=== PATIENT | female | born 1935 | race African-American/Black ===

== ENCOUNTER → 2016-06-13 | Outpatient (CLI) | payer MEDICARE, BC ==
--- NOTE | 2016-06-13 15:30 | RADRPT ---
PROCEDURE: Right knee radiographs. CLINICAL INDICATION: Right knee pain. TECHNIQUE: Three views. Weight bearing. Frontal, lateral, and patellar view. COMPARISON: No prior studies are available for comparison. FINDINGS: There is no fracture or dislocation. The soft tissues are normal. There are degenerative changes with osteophytes arising from all 3 joint compartment margins. There is lateral joint compartment narrowing, subarticular sclerosis, and subarticular cysts, unchanged. There is no lytic or blastic lesion. There is no radiopaque foreign body. IMPRESSION: 1. Degenerative changes of the right knee, predominately involving the lateral joint compartment. RPTAT: QQ .Ignacio Tadeo MD, MD Date Time Electronically viewed and signed by .Ignacio Tadeo MD, MD on 06/13/2016 15:30 .R/
--- NOTE | 2016-06-13 22:49 | HKNOTE ---
DATE OF SERVICE: The patient comes in to discuss total knee replacement. Her right knee pain had become very much wo rse since she last saw me. She gets pain with every step that she takes. She lives alone. She use s a cane at all times. She gets pain in the knee with every step that she takes. She fell again 2 weeks ago and this seemed to aggravate her knee pain. She feels that instability of the knee is wha t caused her to fall. She states, "the knee is very weak." Note that patient has a history of HEPATITIS B. PHYSICAL EXAMINATION GENERAL: The patient is a delightful and youthful and healthy looking 81-year-old female. She come s in with at least 3 or 4 friends. VITAL SIGNS: Height 5 feet 5 inches, weight 190 pounds. Blood pressure 150/70, temperature 98.1. She has severe antalgic gait. RIGHT KNEE: The right knee shows normal alignment. Extension lacks 10 degrees. Flexion lacks 30 de grees. Pain at the limits of motion, 6+ crepitus in the knee, none in the patella. IMAGING: Of her right knee was again reviewed. This shows severe arthritis of the knee with bone-o n-bone contact medially, subchondral sclerosis and osteophyte formation. DISCUSSION : An 81-year-old female with progressively increasing pain in her right knee from neutral arthritis. She has tried conservative methods of treatment including cortisone and physical therap y. She is quite markedly incapacitated. She is very alert and is anxious that she should maintain her independence. She lives in her own house but has a "helper." MANAGEMENT: The operation of total knee replacement is discussed with her in a fair amount of detai l including some of the major possible complications. The patient was given my manual titled "Arthritis of the Knee Joint" which contains information conc erning the various alternatives of treatment. It includes various forms of conservative treatment, i ncluding the use of nonsteroidal anti-inflammatory medications and their dangers. Various surgical a lternatives are discussed. The technique of total knee replacement is discussed in detail, including possible complications. Included also is a section on the possible complications of blood transfusi on, a section on postoperative precautions, and an exercise program to follow at home after total kn ee replacement. The long-term care of a total knee replacement implant is also covered in detail. Th e patient was instructed to read this manual in its entirety since it is, in and of itself, a form o f informed consent. After reading this manual, the patient will make a list of further questions koki t may not have been covered adequately. The patient was further advised that this manual, although e xhaustive in nature, is only intended to supplement and complement a one-on-one discussion with me. The patient's surgery will be scheduled to be performed in the near future. Dictated By: NICK ROMAN/MEETA Conf#: [id number] DID#: [id number]
== END | disposition home or self-care (01) ==
LOC: HKI 13:55
DX: M25.561 Pain in right knee (principal); M25.761 Osteophyte, right knee
CPT/HCPCS: G0463

== ENCOUNTER 2016-07-06 06:10 | Inpatient (IN) | payer MEDICARE, BC ==
[2016-07-05 09:24] VITALS: BMI 31.6
--- NOTE | 2016-07-05 10:08 | PREOPHP ---
DATE OF ADMISSION: 07/06/2016 Dr. Douglas Alegre MD dicated Pre-Operative History and Physical for Carter Rivas. She is scheduled for a right knee arthroplasty to be done by Dr. Garcia at [facility] on July 06. CHIEF COMPLAINT: Pain in the right knee for several months. HISTORY OF PRESENT ILLNESS: This 81-year-old pleasant -Italian female was evaluated by Dr. Batsheva helm in the recent past for right knee osteoarthritis. The patient tried pain medications and a ntiinflammatory agents without much help. Her x-ray showed the right knee revealed osteoarthritic ch anges. Dr. Garcia after evaluation decided she would benefit from a total knee replacement. She uses a single point cane for walking. ____ 50 mg 1 twice a day p.r.n. for pain. PAST MEDICAL HISTORY: Had measles and chicken pox as a child. Has a history of hypertension for many years, hyperlipidemia, cervical spondylosis, lumbar disk disease with occasional left sciatica, exo genous obesity and mild constipation, for which she takes stool softeners and more recently Miralax. She also has a history of hepatitis B many, many years ago. She states her was on hemodialy sis and she thinks that she got it from him but she was not a carrier. No history of any liver dysfu nction in the last ____. She has colonoscopic removal of polyps a few times and a foot surgeries for bunions and hammertoes. SOCIAL HISTORY: She is a . Lives alone with her friends. Drinks alcohol very rarely. Used to sm gabino half a pack of cigarettes for about 38 to 35 years, quit in 1994. 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 FAMILY HISTORY: Mother and brother had colon cancer. Mother had rheumatoid arthritis. A cousin has tonya iabetes. Another cousin has lupus and some kidney problems. ALLERGIES TO MEDICATIONS: NO KNOWN DRUG ALLERGIES, but she has mild hayfever, ALLERGIC TO DUST AND T UMBLEWEEDS. IMMUNIZATIONS: Had pneumovaccine some years ago and also had Prevnar 13 in 2016. She had her last fl u shot in the fall of 2016. REVIEW OF SYSTEMS: GENERAL: Has been obese for many years. No fever or chills. HEENT: Wears glasses. Has mild hayfever. Used vlwv-gek-iwywulj medications for mild symptoms but not on any at this time. NECK: Has a cervical spondylosis. No radiculopathy. No thyroid problems. CARDIAC: Has hypertension for many years. No heart failure. No palpitations or any arrhythmias. No congestive heart failure. No pedal edema or paroxysmal dyspnea or orthopnea. RESPIRATORY: No chronic bronchitis or emphysema or asthma. GASTROINTESTINAL: Has mild constipation. Uses stool softeners and Miralax. No peptic ulcer disease or acid reflux disease. No hematemesis or melena, hematochezia. GENITOURINARY: Has nocturia 2 to 3 times a night. No hematuria or kidney stones or chronic kidney d isease. MUSCULOSKELETAL: As stated above, has moderate osteoarthritis of the right knee and mild arthritis in the left knee. NEUROPSYCHIATRIC: No history of any depression or any anxiety. Has mild essential tremors which are controlled by metoprolol, which she uses for her hypertension. No prior TIAs or strokes. No seizure disorder. HEMATOLOGICAL/ONCOLOGICAL: Unremarkable. ENDOCRINE: No diabetes or hypothyroidism. CURRENT MEDICATIONS: Please see the medication sheet. She is on: 1. Atorvastatin 10 mg at bedtime daily. 2. Centrum Silver 1 daily. She was on aspirin 81 mg daily, but this was discontinued in preparation for surgery. 3. Nasacort nasal spray, 2 sprays on each side of the nose once a day as needed. 4. Tramadol 50 mg 1 twice a day p.r.n. 5. Dulcolax tablets 5 mg, 1 tablet every 2 days. 6. Senokot 8.6 mg, 1 tablet twice a day. 7. Miralax 17 grams p.o. daily with 8 ounces of water as needed. 8. Losartan/hydrochlorothiazide 50/12.5 mg 1 tablet daily in the morning. 9. Metoprolol extended release 100 mg daily in the morning. PHYSICAL EXAMINATION: GENERAL: Revealed the patient to be moderately obese. Alert and oriented to time, place and person. VITAL SIGNS: As follows: Weight 190 pounds, afebrile. Pulse 72, regular. BP 128/80 mm Hg. Respiratio ns 16. Pulse ox on room air 97%. HEENT: Normocephalic. Pupils equal, round, and reactive to light. Nose and throat clear. Ears: Righ t ear no wax. Tympanic membrane normal left ear, mild wax present. TM not seen. NECK: No jugular ve nous distention. No thyromegaly. No carotid bruits. No nuchal rigidity. No significant tenderness on range of motion of the neck. CHEST: Symmetrical. HEART: Regular. No murmurs or gallops. LUNGS: On auscultation reveal no rales ____ . ABDOMEN: EXTREMITIES: ____ no edema, cyanosis or clubbing. Has good pedal pulses. No calf muscle tenderness. No varicose veins. Right knee has mild pain and tenderness without any effusion. Range of motion m ildly decreased. Left knee has mild osteoarthritic changes. No significant tenderness on range of mo tion. BACK: Lumbar examination of spine revealed mild tenderness over the lumbar spine. NEUROLOGICAL: Revealed patient's motor strength to be normal for her age. Sensory system grossly nor mal. Deep tendon reflexes decreased due to obesity and age. Cranial nerves from 2-12 grossly normal. Memory: Normal for her age. Has occasional ____ recent memory. PREOPERATIVE LABS: Chem panel done on 06/29/2016 was normal except for a globulin of 4.10, estimated GFR was 84 mL per minute. BUN, creatinine and electrolytes and her liver functions were normal. Bl ood sugar 97. CBC revealed a white cell count of 4.1, hemoglobin 12.3, platelet count 260,000. PT IN R 1.3 but this was done while patient was on aspirin until 06/29/2016. An electrocardiogram done on 06/29/2016 revealed sinus rhythm with a rate of 73 per minute. ____ revealed mild cardiomegaly and d egenerative change of thoracic spine and atherosclerotic change of the aorta but no acute disease. IMPRESSION: 1. Osteoarthritis of the right knee, moderate, causing pain on walking and patient is using a singl e point cane to walk. Going for a total knee replacement on the right side on 07/06/[address] Petra wesley. 2. Hypertension. 3. Exogenous obesity. 4. Hyperlipidemia. 5. Lumbar disk disease with occasional left sciatica. 6. Mild constipation on stool softeners and laxatives. 7. Status post total hysterectomy for bleeding fibroids. 8. Remote history of hepatitis B without any ongoing problems and not a carrier. DISCUSSION: This patient has no absolute contraindications for the proposed surgery. She is an avera ge risk for this surgery for her age group and patient will benefit from a telemetry bed post surger y. She was advised to take her blood pressure medications by mouth from midnight the night before sanchez rgery other than what was stated above for blood pressure medications. She is cleared for surgery wi th the usual intraoperative and postop precautions. It is recommended that she see a general interni st postoperatively for medical followup while she is in the hospital. PROGNOSIS: Guarded. Dictated By: NICK GARCIA MD HH/NTS Conf#: [id number] DID#: [id number] CC: Douglas Alegre;*End*
[2016-07-06] VITALS (29 sets, daily range): BP systolic 137–185; BP diastolic 60–88; PULSE 59–73; RESP 12–20; Ht 165.1 cm; Wt 84.2 kg
[~2016-07-06] VITALS: Ht 165.1 cm; Wt 84.2 kg
[~2016-07-06 06:10] MED LIST: KNEE PAIN COCKTAIL VANCO INJ SCH; SOD CHLORIDE 0.9% IVPB ONE; TRANEXAMIC ACID IVPB ONE
[2016-07-06] MEDS ORDERED: VANCOMYCIN 1 GM (PMX) 250 ML IVPB ONE (06:30)
[2016-07-06] MEDS ORDERED: LANSOPRAZOLE 30 MG CAP PO ONE (06:30)
[2016-07-06] MEDS ORDERED: CELECOXIB 200 MG CAP PO ONE (06:30)
[2016-07-06] MEDS ORDERED: ONDANSETRON 4 MG INJ IV ONE (06:30)
[2016-07-06] MEDS ORDERED: LACTATED RINGER'S 1,000 ML IV* SCH (06:30)
[2016-07-06] MEDS ORDERED: ACETAMINOPHEN 1000MG/100ML IV 100 ML IVPB ONE (06:30)
[2016-07-06] MEDS ORDERED: oxyCODONE (CR) 10 MG TAB [oxyCONTIN] PO ONE (06:30)
[2016-07-06] MEDS ORDERED: DEXAMETHASONE 4 MG/ML 1 ML INJ IV ONE (06:30)
[2016-07-06] MEDS ORDERED: LOSA1TAB19 PO (06:46)
[2016-07-06] MEDS ORDERED: ATOR10TA65 PO (06:46)
[2016-07-06] MEDS ORDERED: METO100T13 PO (06:46)
[2016-07-06] MEDS ORDERED: POLY17PO6 PO (06:46)
[2016-07-06] MEDS ORDERED: SENN17.23 PO (06:46)
[2016-07-06] MEDS ORDERED: TRAM50TA2 PO (06:46)
[2016-07-06] MEDS ORDERED: ASPI-664 PO (06:46)
[2016-07-06] MEDS ORDERED: LIDOCAINE 2% (SDV) 5 ML INJ ONE ×5 (06:48→07:35)
[2016-07-06] MEDS ORDERED: MIDAZOLAM 1 MG/ML 2 ML INJ ONE (06:48)
[2016-07-06] MEDS ORDERED: PROPOFOL 100 ML ONE (06:48)
[2016-07-06] MEDS ORDERED: VANCOMYCIN 1 GM INJ ONE (06:58)
[2016-07-06] MEDS ORDERED: POLYMYXIN B 500000 UNIT INJ ONE (06:58)
[2016-07-06] MEDS ORDERED: TOBRAMYCIN 1.2 GM POWDER ONE (06:58)
[2016-07-06] MEDS ORDERED: BUPIVACAINE 0.25%/EPI (SDV) 30 ML INJ ONE (06:58)
[2016-07-06] MEDS ORDERED: METHYLENE BLUE 1% 10 ML INJ ONE (06:58)
[2016-07-06] MEDS ORDERED: SOD CHLORIDE 0.9% IRR SCH ×2 (07:00)
[2016-07-06] MEDS ORDERED: TRANEXAMIC ACID IRR SCH ×2 (07:00)
[2016-07-06] MEDS ORDERED: BACITRACIN 50000 UNITS INJ ONE (07:02)
[2016-07-06] MEDS ORDERED: LIDOCAINE 1% (MDV) 20 ML INJ ONE (07:09)
--- NOTE | 2016-07-06 07:17 | HPN ---
Date/Time of Note Date/Time of Note DATE: 07/06/16 TIME: 07:17 Interval H&P Admission Note Pt. seen H&P reviewed: No system changes CHLOE DICKSON PA-C Jul 06, 2016 07:17
[2016-07-06] MEDS ORDERED: LIDOCAINE 1% (MDV) 20 ML INJ SC ONE (07:30)
[2016-07-06] MEDS ORDERED: PHENYLephrine (100 MCG/ML) 5ML SYG ONE ×2 (07:35→08:41)
[2016-07-06] MEDS ORDERED: DIPHENHYDRAMINE 50 MG INJ IV PRN (08:30)
[2016-07-06] MEDS ORDERED: MEPERIDINE 25 MG INJ IV PRN (08:30)
[2016-07-06] MEDS ORDERED: morphine (1 MG/ML) 10ML SYRINGE IV PRN ×3 (08:30)
[2016-07-06] MEDS ORDERED: LABETALOL HCL 20MG INJ IV PRN (08:30)
[2016-07-06] MEDS ORDERED: OXYCODONE/ACETAMINOPHEN (5/325) TAB PO PRN ×2 (08:30)
[2016-07-06] MEDS ORDERED: ALBUMIN HUMAN 5% 250 ML IV PRN (08:30)
[2016-07-06] MEDS ORDERED: hydrALAzine 20 MG INJ IV PRN (08:30)
[2016-07-06] MEDS ORDERED: ONDANSETRON 4 MG INJ IV PRN (08:30)
[2016-07-06] MEDS ORDERED: HYDROmorphONE (0.2 MG/ML) 10ML SYG IV PRN ×3 (08:30)
[2016-07-06] MEDS ORDERED: EPHEDrine SULFATE 50 MG/5 ML SYG IV PRN (08:30)
[2016-07-06] MEDS ORDERED: HETASTARCH 6% NACL 500 ML ONE (08:41)
[2016-07-06] MEDS ORDERED: ROPIVACAINE 0.2% 100ML BAG INJ ONE (09:00)
[2016-07-06] MEDS ORDERED: METOCLOPRAMIDE 10 MG INJ ONE (09:19)
[2016-07-06] MEDS ORDERED: DEXAMETHASONE 4 MG/ML 1 ML INJ ONE (09:19)
[2016-07-06] MEDS ORDERED: FAMOTIDINE 20 MG INJ ONE (09:19)
[2016-07-06] MEDS ORDERED: ONDANSETRON 4 MG INJ ONE (09:19)
[2016-07-06] MEDS: ONDANSETRON 4 MG INJ IV SCH ×4 (11:30→23:30)
[2016-07-06] MEDS ORDERED: NALOXONE (0.4 MG/ML) INJ IV PRN (11:30)
[2016-07-06] MEDS ORDERED: HYDROmorphONE 0.2 MG/ML PCA IV PRN (11:30)
[2016-07-06] MEDS ORDERED: BISACODYL 10 MG SUPP PR PRN (11:30)
[2016-07-06] MEDS ORDERED: DIPHENHYDRAMINE 50 MG INJ IM PRN (11:30)
[2016-07-06] MEDS ORDERED: NA PHOSPHATE/BIPHOS 133 ML ENEMA PR PRN (11:30)
[2016-07-06] MEDS ORDERED: COUMADIN NOTE XX SCH (11:30)
[2016-07-06] MEDS ORDERED: SENNA/DOCUSATE NA (8.6MG/50MG) TAB PO PRN (11:30)
[2016-07-06] MEDS ORDERED: ASPIRIN (EC) 325 MG TAB PO ONE (11:30)
[2016-07-06] MEDS ORDERED: oxyCODONE 5 MG TAB PO PRN ×3 (11:30)
[2016-07-06] MEDS ORDERED: BETHANECHOL 25 MG TAB PO PRN (11:30)
[2016-07-06] MEDS ORDERED: MEPERIDINE 10 MG/ML 30 ML PCA IV PRN (11:30)
[2016-07-06] MEDS ORDERED: MAGNESIUM HYDROXIDE 30ML CUP PO PRN (11:30)
[2016-07-06] MEDS ORDERED: ZOLPIDEM 5 MG TAB PO PRN (11:30)
[2016-07-06] MEDS: ACETAMINOPHEN 1000MG/100ML IV 100 ML IVPB SCH ×2 (11:30→19:47)
[2016-07-06] MEDS ORDERED: DOCUSATE SODIUM 100 MG CAP PO ONE (11:30)
--- NOTE | 2016-07-06 11:40 | RADRPT ---
PROCEDURE: X-RAY RIGHT KNEE CLINICAL INDICATION: Right knee replacement. TECHNIQUE: 2 views of the right knee are available for review. COMPARISON: 05/24/2016. FINDINGS: Intraoperative images were obtained of the right knee. A probe is within the knee joint. The patie nt has undergone a knee replacement. There is an overall appropriate appearance. No acute fracture is seen. The bones are osteoporotic. IMPRESSION: 1. Appropriate appearance to intraoperative images of the right knee at the time of knee replacemen t. 2. Osteoporosis. No fractures seen. RPTAT: XX .Nicolas Bustamante MD, Date Time Electronically viewed and signed by .Nicolas Bustamante MD, on 07/06/2016 11:40 .T/
[2016-07-06] MEDS: CEFAZOLIN 1 GM/50 ML (PMX) 50 ML IVPB SCH ×2 (12:30→19:47)
--- NOTE | 2016-07-06 12:34 | CONS ---
Date/Time of Note Date/Time of Note DATE: 07/06/16 TIME: 12:09 Consultation Date/Type/Reason Admit Date/Time Jul 06, 2016 at 06:10 Initial Consult Date cancel report Exam/Review of Systems Vital Signs Vitals Vital Signs Date Time Temp Pulse Resp B/P Pulse Ox O2 Delivery O2 Flow Rate FiO2 07/06/16 11:25 97.5 07/06/16 11:21 71 18 150/71 99 Mask 8.0 Medications Medications Current Medications Ropivacaine 60 ml/ Morphine Sulfate 4 mg/Clonidine 100 mcg/Ketorolac Tromethamine 30 mg/Vancomycin HCl 500 mg/Sodium Chloride 50 ml INTRA-OP INJ Last administered on 07/06/16 09:00; Admin Dose 116 ML; Start 07/06/16 at 05:30 ; Stop 07/09/16 at 13:00 Lactated Ringer's 1,000 ml @ 125 mls/hr Q8H IV* Last administered on 06:48; Admin Dose 125 MLS/HR; Start 07/06/16 at 06:30; Stop 07/06/16 at 14: 29 Dextrose/Lactated Ringer's (D5-Lr) 1,000 ml @ 80 mls/hr [id number] IV ; Start at 11:05 Hydromorphone HCl (Dilaudid OUTREACH EDUCATOR) Q4PCA PRN IV SEVERE PAIN 8-10; Start at 11:30; Stop 07/07/16 at 11:29 Meperidine HCl (Demerol OUTREACH EDUCATOR) Q4PCA PRN IV SEVERE PAIN 8-10; Start 07/06/16 at 11:30; Stop 07/07/16 at 11:29 Oxycodone HCl (Roxicodone) 20 mg Q3H PRN PO PAIN LEVEL 8-10; Start 07/06/16 at 11:30 Oxycodone HCl (Roxicodone) 10 mg Q3H PRN PO PAIN LEVEL 4-7; Start 07/06/16 at 11:30 Oxycodone HCl 5 mg 5 mg Q3H PRN PO PAIN LEVEL 1-3; Start 07/06/16 at 11:30 Acetaminophen (Ofirmev 1000mg/ 100ml Iv) 100 ml @ 400 mls/hr Q8H IVPB ; Start 07/06/16 at 11:30; Stop 07/08/16 at 03:44 Zolpidem Tartrate (Ambien) 5 mg HS PRN PO INSOMNIA; Start 07/06/16 at 11:30 Ondansetron HCl (Zofran Inj) 4 mg Q6H IV ; Start 07/06/16 at 11:30; Stop at 05:31 Ondansetron HCl 4 mg 4 mg Q4H PRN IV NAUSEA AND/OR VOMITING; Start 07/07/16 at 11:30 Cefazolin Sodium (Ancef 1 Gm/50 ml (Pmx)) 50 ml @ 100 mls/hr Q8H IVPB ; Start 07/06/16 at 11:30; Stop 07/07/16 at 03:59 Miscellaneous Information (Note) NOTE XX ; Start 07/06/16 at 11:30 Aspirin (Ecotrin) 325 mg BID PO ; Start 07/07/16 at 09:00 Celecoxib (Celebrex) 200 mg BID PO ; Start 07/07/16 at 09:00 Dexamethasone (Decadron) 4 mg DAILY@07 IV ; Start 07/07/16 at 07:00; Stop at 06:59 Pantoprazole (Protonix Tab) 40 mg DAILY@06 PO ; Start 07/08/16 at 06:00 Docusate Sodium/ Ferrous Fumarate (Eliceo-Sequels) 1 tab BID PO ; Start 07/07/16 at 09:00 Docusate Sodium (Colace) 200 mg BID PO ; Start 07/07/16 at 09:00; Stop 07/10/16 at 08:59 Simethicone (Mylicon) 80 mg TID PRN PO DISTENSION/GAS/BLOATING; Start 07/06/16 at 11:30 Senna/Docusate Sodium (Senokot-S) 2 tab BID PRN PO CONSTIPATION; Start at 11:30 Magnesium Hydroxide (Milk Of Mag) 30 ml HS PRN PO CONSTIPATION; Start 07/06/16 at 11:30 Bisacodyl (Dulcolax Supp) 10 mg DAILY PRN [place] CONSTIPATION; Start 07/06/16 at 11 :30 Sodium Biphosphate/ Sodium Phosphate (Fleet Enema) 133 ml DAILY PRN [place] CONSTIPATION; Start 07/06/16 at 11:30 Diphenhydramine HCl (Benadryl) 25 mg Q4H PRN IM ITCHING OR RASH; Start at 11:30 Ketorolac Tromethamine (Toradol) 15 mg DAILY@06 PRN INJ ADMINSTER BY SURGEON ONLY; Start 07/07/16 at 06:00; Stop 07/11/16 at 05:59 Bupivacaine HCl/ Epinephrine Bitart (Marcaine 0.25%/ Epi (Sdv) 30 ml) 20 ml DAILY@06 PRN INJ ADMINSTER BY SURGEON ONLY; Start 07/07/16 at 06:00; Stop 07/11 at 05:59 Naloxone HCl (Narcan) 0.2 mg Q2M PRN IV DECREASED REPIRATORY RATE; Start at 11:30 Atorvastatin Calcium (Lipitor) 10 mg QHS PO ; Start 07/06/16 at 21:00; Status UNV Metoprolol Succinate (Toprol Xl) 100 mg DAILY PO ; Start 07/07/16 at 09:00; Status UNV Polyethylene Glycol (Miralax) 17 gm DAILY PO ; Start 07/07/16 at 09:00; Status UNV Miscellaneous Information 1 tab DAILY PO ; Start 07/07/16 at 09:00; Status UNV MICHAELLE TURNER MD Jul 06, 2016 12:19
--- NOTE | 2016-07-06 12:57 | OPR ---
DATE OF OPERATION: 07/06/2016 PREOPERATIVE DIAGNOSIS: Exceedingly severe degenerative osteoarthritis of the right knee. POSTOPERATIVE DIAGNOSIS: Exceedingly severe degenerative osteoarthritis of the right knee. PROCEDURE: Right total knee replacement. SURGEON: Ed Garcia MD PNEUMATIC TOOL REPAIRER: LILY Hernandez FINDINGS AT SURGERY: The patient was found to have exceedingly severe arthritis affecting mainly th e lateral compartment and the patellofemoral joint. Her bone was remarkably hard for a female of he r age. JUSTIFICATION FOR SURGERY: The knee was found to have end-stage osteoarthritis. The patient is an active 81-year-old whose lifestyle is markedly affected by the arthritic knee. An extensive course of conservative care has been tried prior to embarking on the knee replacement operation. There can be no reasonable expectation that any further conservative treatment will make any improvement to t his patient's pain level and lifestyle. The risks and complications of the surgery were discussed w ith the patient at the preoperative visit as well as the risks and possible complications of blood t ransfusion using hospital blood. The patient is agreeable to using hospital blood if needed. DESCRIPTION OF PROCEDURE: The patient was given intravenous antibiotics 1 hour prior to surgery. A n epidural anesthetic was initiated in the ICU holding area. The patient was taken to the operating room and given a light general anesthetic. The leg, foot, and ankle were prepared and draped in th e usual sterile fashion. The center of the ankle was marked at the midpoint between the 2 malleoli with a sterile marking pen. A tourniquet around the thigh was inflated to 250 mmHg after the leg brewster d been exsanguinated using an Esmarch bandage. The tourniquet was inflated at the initiation of pro cedure for a short period and was then again reinflated at the time of cementing the components part s. The total tourniquet time was 48 minutes. A longitudinal incision was made over the anterior aspect of the knee. The incision extended from t he tibial tubercle to a point just above the patella. The medial capsule was exposed by sharp and chip almeidat dissection, and was incised 1/4 inch medial to the patella. A marking stitch was set on each s khushboo of the incision at the midpoint of the capsule so as to enable accurate reapproximation at the e nd of the operation. A vastus split was made in the vastus medialis extending from the superior tad e of the patella for approximately 5 cm between the line with the muscle fibers. The ends of the mu scle split at the patella were marked with a marking stitch on each side for later accurate reapprox imation. The patella was reflected laterally and osteophytes around the rim of the patella were rem ina. Osteophytes along the lateral femoral condyle were removed so as to facilitate lateral reflec tion of the patella. Posteromedial osteophytes were removed on the lateral side as well, so as to f ree up the lateral collateral ligament. Medial femoral osteophytes and posteromedial femoral osteop hytes were also removed at this time. This allowed for the knee to be brought into a more normal al ignment. A segment of bone was cut from the articular surface of the patella using a caliper to det ermine the exact thickness to be removed. The patella was prepared to accept a 32 mm patellar dome. The knee was flexed, and the patella was displaced laterally without eversion. Osteophytes in the femoral notch were removed. The remnants of the medial and lateral menisci were excised and the cr uciate ligaments were excised. The medial collateral ligament was elevated as an osteo-periosteal f lap from the proximal tibia. The distal end of the medial collateral ligament remained attached to the tibia throughout the operation. The tibia was retracted forward with Hohmann retractor, inserte d posterior to the midpoint of the proximal tibia. The tibial alignment jig (OrthAlign) was set in place in such a way as to align longitudinally with the anterior tibial spine, with the junction of the middle and medial 2/3 of the patella tendon, and with the posterior intercondylar eminence of th e tibia. An AP and lateral x-ray was obtained with the alignment jig in place. This showed that th e alignment was satisfactory after some slight adjustments were made. The posterior slope of the ti merline was set at 6.5 degrees. The tibial cutting block was attached to the proximal tibia with 2 Stei nmann pins. An external alignment dilcia was placed on the cutting block to confirm the alignment of t he cutting block. An Marcus Wing feeler gauge was now placed on the superior aspect of the cutting b lock to further confirm the posterior slope of the tibia and the depth of the cut to be made. An os cillating saw was used to remove an appropriate amount of bone from the proximal tibia with the heal thy side being used to measure the cutting depth. The lateral femoral condyle of the distal femur w as measured to determine the appropriate size for the femoral component. The anterior condyle of th e femur was partially removed with a rongeur. A medium-sized cutting block was attached to the dist al femur with 2 Steinmann pins through the pin holes in the block. The external alignment jig of is cutting block was lined up with the anterior surface of the femur and a central intercondylar hol e for the intramedullary dilcia was drilled through the hole in the alignment block. The block was rem ina. A long Waterpik nozzle was used to flush fat from the intramedullary canal. The appropriatel y sized cutting block was now attached to the femur by means of an intramedullary dilcia. The linking guide was inserted into the slot in the base of the femoral cutting block with the knee set at 90 de grees of flexion and with the linking guide set flush with the proximal tibial cut in order to set t he appropriate rotational alignment on the femoral cutting block. Ligament balance was checked at t his point and was found to be very satisfactory. Once the rotational alignment had been determined, and the ligaments found to be balanced, the femoral cutting block was secured to the distal femur w ith 2 Steinmann pins. The anterior and posterior cuts of the distal femur were made off the femoral cutting block. The cutting block was removed and a spacer block was used to measure the flexion ga p which was found to be 12.5 mm. The same spacer block size without the femoral element was used with the leg in extension to determi ne the amount of distal femur to be removed in the transverse plane. A 5-degree distal cutting bloc k was now set on the femoral intramedullary dilcia, and the dilcia was inserted into the intramedullary ca nal. The appropriate amount of bone to be removed was determined. The femoral cutting block was pi nned to the anterior surface of the femur with 2 Steinmann pins. The appropriate amount of bone was resected off the distal femur to give an extension gap equal to the thickness of the flexion gap. The cut needed to be repeated after initial cut in order to produce an extension gap the same size a s the flexion gap. By using the appropriate cutting blocks, the rest of the femoral cuts were made. The femoral trial component was installed and was found to fit perfectly. The femoral trial component was removed. T he proximal tibia was sized, and the appropriate tibial tray selected. The central fixation hole in the tibia was made using the tibial tray template and the appropriate instruments. The femoral and tibial trials and the trial tibial insert were installed, and the patella was prepared to accept th e 32 mm patellar dome component. The trial components were all removed. The tourniquet was inflate d. Soft tissues around the knee, especially the posterior capsule, were injected with a mixture of Naropin, Toradol, morphine, and clonidine. The cut surfaces of the bones were cleaned with pulsatil e Water Jet lavage and thoroughly dried. Sclerotic bone surfaces were drilled with a 1/8-inch drill . The tibial trial component was installed with methyl methacrylate cement followed by the femoral component and finally the patellar component. Cement was used on all 3 components. The cement was finger packed into the cut surfaces of the bone and pressurized with a rubber dam in order to get go od interdigitation of the cement into the bone. A lateral x-ray of the knee was obtained while the cement was hardening with the anticipated appropriate spacer trial in place. Once the cement was brewster rd, all extraneous cement was removed. The cut edges of the medial capsule were held together at th e midpoint with a towel clip, and the knee was put through a full range of motion. The patella was found to track satisfactorily. A lateral release was not required. At this point, the patella was found to track very well in the patellar groove of the femoral component. The knee was frequently irrigated with normal saline containing antibiotics with pulsatile lavage th roughout the entire operation as a prophylactic measure against infection. Once the cement was hard , the tourniquet was released. Bleeding points were cauterized. The total tourniquet time was 48 m inutes. The patient's vital signs remained stable throughout the operation. The permanent rotating bearing was installed. Superficial and deep Hemovac drains were set in place . The wound was closed using interrupted Vicryl on the capsule with FiberWire used at strategic poi nts such as the attachment of the distal ends of the vastus medialis at the split, and the tibial te ndon was also attached to the osteo-periosteal flap with FiberWire. The rest of the medial capsule was closed with interrupted Vicryl. A subcuticular stitch was inserted and domitila were used on the skin. The usual sterile dressings were applied. A Sebas-Crandall compression dressing was applied a fter a sterile cooling pad had been set in place against the deep tissues by sterile cast padding. The patient's condition at the end of the procedure was satisfactory. Vital signs remained stable t hroughout the operation. The patient returned to the recovery room in stable condition. X-rays wer e obtained in the recovery room. Calf pumps were applied to both legs in the operating room. There were no problems or complications as far as we know. The sponge and instrument counts were correct . COMPONENT INFORMATION: KNEE IMPLANT TYPE: LCS. FEMORAL COMPONENT SIZE: Standard plus. TIBIAL COMPONENT SIZE: 2. PATELLAR COMPONENT SIZE: 32 mm patellar dome. TIBIAL INSERT: 12.5 mm mobile-bearing posterior stabilized. IMPLANT HERBICIDE SPRAYER: [employer] [place], [place]. TOTAL TOURNIQUET TIME: 48 minutes. TOTAL BLOOD LOSS: 150 mL. Dictated By: ED ROMAN/MEETA Conf#: [id number] DID#: [id number]
--- NOTE | 2016-07-06 13:04 | CONS ---
DATE OF ADMISSION: 07/06/2016 DATE OF CONSULTATION: 07/06/2016 TYPE OF CONSULTATION: Medical. Thank you, Dr. Garcia, for asking me to participate in the medical management of this patient. REASON FOR CONSULTATION: To manage the patient's hypertension and hyperlipidemia. HISTORY OF PRESENT ILLNESS: This patient is now in the postoperative recovery room after undergoing a right total knee replacement this morning. The patient is just coming out of anesthesia. She do es respond and follows commands. There is a note on the chart from the patient's primary care physi uday, Dr. Douglas Alegre. This note details the patient's past medical history and current medicat ions. PAST MEDICAL HISTORY: The patient has the following past medical history: Hypertension, hyperlipid emia, cervical spondylosis, lumbar disk disease, occasionally with left sciatica, exogenous obesity, mild constipation, history of hepatitis B. PAST SURGICAL HISTORY: Colonoscopy with removal of polyps several times and foot surgeries for buni ons and hammertoes. SOCIAL HISTORY: She is a and lives alone with her friends. Drinks alcohol very rarely. Used to smoke, stopped in 1994. She retired from [employer] in 1994. FAMILY HISTORY: Mother and brother had colon cancer. Mother had rheumatoid arthritis. She has a c ousin with diabetes mellitus, another cousin with systemic lupus and some kidney problem. ALLERGIES TO MEDICATIONS: NO KNOWN DRUG ALLERGIES. SHE HAS MILD HAYFEVER. PHYSICAL EXAMINATION: GENERAL: At this time reveals a well-developed female in no apparent distress. She is coming out o f anesthesia. VITAL SIGNS: Temperature 97.5, pulse is 71, respirations 18, blood pressure 150/71, O2 saturation i s 99% on 8-liter mask. She is now 100% oxygen saturation on 2 liter nasal cannula. HEENT: Head normocephalic. Eyes: Extraocular muscles intact. Nose and mouth are normal. NECK: Supple. No neck vein distention. LUNGS: Clear to auscultation. HEART: Regular rhythm. No murmurs, gallops or rubs. ABDOMEN: Soft, nontender. EXTREMITIES: No peripheral edema. IMPRESSION: This patient is doing well after undergoing a right total knee replacement today. She is coming out of anesthesia, but she does respond to verbal stimuli. I will manage the patient's hy pertension and hyperlipidemia. PLAN: 1. Resume some routine medications. 2. Check labs in the morning. 3. Postop total knee replacement protocol. 4. I will follow this patient along with you. Dictated By: MICHAELLE TURNER MD, ND/MEETA Conf#: [id number] DID#: [id number]
--- NOTE | 2016-07-06 13:28 | RADRPT ---
PROCEDURE: XR right knee. CLINICAL INDICATION: Postoperative knee replacement. TECHNIQUE: AP and lateral views are available for review. COMPARISON: No comparison available FINDINGS: There is a postoperative constrained total knee replacement. There is no evidence of loosening of th e prosthesis. There is no evidence of hardware failure. The osseous structures are normal in mineral ization, architecture and alignment No acute fracture or dislocation is seen.No osseous lesions are identified. There are postoperative soft tissue changes. [address] IMPRESSION: Unremarkable postoperative constrained total knee replacement. Postoperative soft tissue changes RPTAT: HGDB .Jovanni Mosqueda MD, Date Time Electronically viewed and signed by .Jovanni Mosqueda MD, on 07/06/2016 13:28 .B/
[2016-07-06] MEDS ORDERED: TRANEXAMIC ACID 840 MG in SOD CHLORIDE 0.9% 100 ML IVPB ONE ×2 (15:00→18:00)
[2016-07-06] MEDS: DEXTROSE 5%-LR 1,000 ML IV SCH ×2 (15:41→23:35)
[2016-07-06] MEDS: ATORVASTATIN 10 MG TAB PO SCH (21:51)
[2016-07-07] MEDS: ACETAMINOPHEN 1000MG/100ML IV 100 ML IVPB SCH ×3 (03:32→19:36)
[2016-07-07] MEDS: CEFAZOLIN 1 GM/50 ML (PMX) 50 ML IVPB SCH (03:32)
[2016-07-07 05:24] LABS: ADD SCAN DIFF NO
[2016-07-07] MEDS: ONDANSETRON 4 MG INJ IV SCH (05:30)
[2016-07-07 05:35] LABS: BASOPHILS % 0.1 % (0.0-2.0); HEMATOCRIT 33.8 % (37.0-47.0); HEMOGLOBIN 10.5 g/dl (12.0-16.0); LYMPHOCYTES # 1.1 10^3/ul (0.8-2.9); LYMPHOCYTES % 12.6 % (15.0-51.0); MEAN CORPUSCULAR HEMOGLOBIN 28.7 pg (29.0-33.0); MEAN CORPUSCULAR HGB CONC 31.1 g/dl (32.0-37.0); MEAN CORPUSCULAR VOLUME 92.3 fl (82.0-101.0); MEAN PLATELET VOLUME 10.7 fl (7.4-10.4); MONOCYTE # 0.7 10^3/ul (0.3-0.9); MONOCYTES % 7.8 % (0.0-11.0); NEUTROPHILS % 79.3 % (39.0-77.0); PLATELET COUNT 231 10^3/UL (140-415); RED BLOOD COUNT 3.66 10^6/ul (4.20-5.40); RED CELL DISTRIBUTION WIDTH 13.8 % (11.5-14.5); WHITE BLOOD COUNT 8.8 10^3/ul (4.8-10.8)
[2016-07-07] MEDS ORDERED: BUPIVACAINE 0.25%/EPI (SDV) 30 ML INJ INJ PRN (06:00)
[2016-07-07] MEDS ORDERED: KETOROLAC 15 MG INJ INJ PRN (06:00)
[2016-07-07] MEDS: DEXAMETHASONE 4 MG/ML 1 ML INJ IV SCH (07:00)
[2016-07-07 07:57] VITALS: BP 174/79; RESP 18
--- NOTE | 2016-07-07 08:00 | PN ---
Date/Time of Note Date/Time of Note DATE: 07/07/16 TIME: 07:56 Assessment/Plan VTE Prophylaxis VTE Prophylaxis Intervention: ambulation, anti-embolic stocking, SCD's, other ( Aspirin 325 mg.) Lines/Catheters IV Catheter Type (from Nrsg): Peripheral IV Jesus in Place (from Nrsg): No Assessment/Plan Assessment/Plan -Hemovac Removed Today. 440 cc output -Pain Cocktail Given -Pain Meds as needed -Dress change performed today -OOB with PT -ASA/SCDs for DVT Prophylaxis -Continue monitoring with Internal Medicine -Patient Stable Subjective 24 Hr Interval Summary 81-year-old female postop day 1 status post right total knee replacement. Patient denies any pain overnight. There was extended period of time where she was experiencing ongoing anesthesia status post procedure. After speaking with nurseMary Grace she did have a period of disorientation which cause slight aggression as she scratched 1 of the nursing assistants. She currently has a sitter with her for closer monitoring. Patient is very pleasant however. She does seem to continue with disorientation as she initially states that she is at her neighbor's house. She does recognize me as well as nurses that are taking care of her. She is responsive and responses to questions are clear and accurate based on the question asked. She denies any calf pain, chest tightness or shortness of breath. Pain Control: well controlled Exam/Review of Systems Vital Signs Vitals Vital Signs Date Time Temp Pulse Resp B/P Pulse Ox O2 Delivery O2 Flow Rate FiO2 07/06/16 20:05 98.0 69 18 155/72 99 07/06/16 18:07 Nasal Cannula 2.0 Intake and Output 07/06/16 07/06/16 07/07/16 15:00 23:00 07:00 Intake Total 1400 ml 806.8 ml 1320 ml Output Total 350 ml 1780 ml 2800 ml Balance 1050 ml -973.2 ml -1480 ml Exam Free Text/Dictation -Hemovac: Intact. 440 cc output. -Pain Cocktail Drains: Intact -Incision: Clean, Dry and Intact without any redness or drainage -5/5 Tibialis Anterior, EHL Gastrocnemius/Soleus and Peroneals -Normal Sensation -Palpable DP/PT, Capillary Refill <2 secs -No Distal Edema -Negative Gurpreet Sign/No calf pain -Toes Freely Movable Results Result Diagram: 07/07/16 0410 CHLOE DICKSON PA-C Jul 07, 2016 07:59
--- NOTE | 2016-07-07 08:02 | PDOCDIS ---
Discharge Instructions DIAGNOSIS Discharge Diagnosis: Status post right total knee arthroplasty. CONDITION Patient Condition: Stable HOME CARE INSTRUCTIONS: Diet Instructions: Regular ACTIVITY: Activity Restrictions: Slowly Increase Activity Rest between Activity Avoid heavy lifting No Sexual Activity Do not Drive Do not operate Machinery Avoid Heavy Housework Keep Limb Elevated (While at rest. Ice modalities may also be used.) Weight Bearing (As tolerated. May use front wheeled walker for assisted ambulation. Gradually transition to a single-point cane or independent ambulation when confident and comfortable.) Bathing Restrictions: Shower (Using Tegaderm with pad dressing. Apply prior to shower and remove after shower. Repeat the steps each day until domitila are removed around 10 days.) FOLLOW UP/APPOINTMENTS Appointments 07/27/2016 at 1:45 PM. CHLOE DICKSON PA-C Jul 07, 2016 08:02
[2016-07-07] MEDS ORDERED: LOSARTAN 50 MG TAB PO SCH (09:00)
[2016-07-07] MEDS ORDERED: HYDROCHLOROTHIAZIDE 12.5 MG CAP PO SCH (09:00)
[2016-07-07] MEDS: DOCUSATE SODIUM 100 MG CAP PO SCH ×2 (09:28→21:16)
[2016-07-07] MEDS: ASPIRIN (EC) 325 MG TAB PO SCH ×2 (09:28→21:16)
[2016-07-07] MEDS: METOPROLOL (XL) 100 MG TAB PO SCH (09:29)
[2016-07-07] MEDS: FERROUS FUMARATE (SR) TAB PO SCH ×2 (09:29→21:16)
[2016-07-07] MEDS: CELECOXIB 200 MG CAP PO SCH ×2 (09:29→21:16)
[2016-07-07] MEDS: POLYETHYLENE GLYCOL 17 GM PACKET PO SCH (09:30)
[2016-07-07 09:32] VITALS: BP 160/77; PULSE 77
--- NOTE | 2016-07-07 10:40 | CONS ---
Date/Time of Note Date/Time of Note DATE: 07/07/16 TIME: 10:37 Assessment/Plan Assessment/Plan Chief Complaint/Hosp Course 1.She is one day postop a right total knee replacement. 2. She is confused and disoriented this morning. She was apparently confused last night also. She has a sitter with her. I will review her laboratory tests and her medications. 3. We will continue most of her medication and her physical therapy. Problems: Consultation Date/Type/Reason Admit Date/Time Jul 06, 2016 at 06:10 Initial Consult Date cancel report Type of Consultation: medicine 24 HR Interval Summary Free Text/Dictation She is confused and disoriented today. Apparently this started last night. She has a sitter in place at this time. Constitutional: disoriented Exam/Review of Systems Vital Signs Vitals Vital Signs Date Time Temp Pulse Resp B/P Pulse Ox O2 Delivery O2 Flow Rate FiO2 07/07/16 09:32 77 160/77 07/07/16 07:57 98.1 18 100 07/06/16 18:07 Nasal Cannula 2.0 Intake and Output 07/06/16 07/06/16 07/07/16 15:00 23:00 07:00 Intake Total 1400 ml 806.8 ml 1320 ml Output Total 350 ml 1780 ml 2800 ml Balance 1050 ml -973.2 ml -1480 ml Exam Constitutional: alert Psych: confusion Respiratory: clear to auscultation, normal air movement Cardiovascular: regular rate and rhythm Gastrointestinal: soft Musculoskeletal: nl extremities to inspection Results Result Diagram: 07/07/16 0410 Results 24 hrs Laboratory Tests Test 07/07/16 04:10 White Blood Count 8.8 Red Blood Count 3.66 L Hemoglobin 10.5 L Hematocrit 33.8 L Mean Corpuscular Volume 92.3 Mean Corpuscular Hemoglobin 28.7 L Mean Corpuscular Hemoglobin Concent 31.1 L Red Cell Distribution Width 13.8 Platelet Count 231 Mean Platelet Volume 10.7 H Neutrophils % 79.3 H Lymphocytes % 12.6 L Monocytes % 7.8 Eosinophils % 0.0 Basophils % 0.1 Nucleated Red Blood Cells % 0.0 Neutrophils # 7.0 Lymphocytes # 1.1 Monocytes # 0.7 Eosinophils # 0.0 Basophils # 0.0 Nucleated Red Blood Cells # 0.0 Medications Medications Current Medications Ropivacaine 60 ml/ Morphine Sulfate 4 mg/Clonidine 100 mcg/Ketorolac Tromethamine 30 mg/Vancomycin HCl 500 mg/Sodium Chloride 50 ml INTRA-OP INJ Last administered on 07/06/16 09:00; Admin Dose 116 ML; Start 07/06/16 at 05:30 ; Stop 07/09/16 at 13:00 Dextrose/Lactated Ringer's (D5-Lr) 1,000 ml @ 80 mls/hr [id number] IV Last administered on 07/06/16 15:41; Admin Dose 80 MLS/HR; Start 07/06/16 at 11:05 Hydromorphone HCl (Dilaudid BROADCAST CORRESPONDENT) Q4PCA PRN IV SEVERE PAIN 8-10; Start at 11:30; Stop 07/07/16 at 11:29 Meperidine HCl (Demerol BROADCAST CORRESPONDENT) Q4PCA PRN IV SEVERE PAIN 8-10; Start 07/06/16 at 11:30; Stop 07/07/16 at 11:29 Oxycodone HCl (Roxicodone) 20 mg Q3H PRN PO PAIN LEVEL 8-10; Start 07/06/16 at 11:30 Oxycodone HCl (Roxicodone) 10 mg Q3H PRN PO PAIN LEVEL 4-7; Start 07/06/16 at 11:30 Oxycodone HCl 5 mg 5 mg Q3H PRN PO PAIN LEVEL 1-3; Start 07/06/16 at 11:30 Acetaminophen (Ofirmev 1000mg/ 100ml Iv) 100 ml @ 400 mls/hr Q8H IVPB Last administered on 07/07/16 03:32; Admin Dose 400 MLS/HR; Start 07/06/16 at 11:30 ; Stop 07/08/16 at 03:44 Zolpidem Tartrate (Ambien) 5 mg HS PRN PO INSOMNIA; Start 07/06/16 at 11:30 Ondansetron HCl (Zofran Inj) 4 mg Q4H PRN IV NAUSEA AND/OR VOMITING; Start at 11:30 Miscellaneous Information (Note) NOTE XX ; Start 07/06/16 at 11:30 Aspirin (Ecotrin) 325 mg BID PO Last administered on 07/07/16 09:28; Admin Dose 325 MG; Start 07/07/16 at 09:00 Celecoxib (Celebrex) 200 mg BID PO Last administered on 07/07/16 09:29; Admin Dose 200 MG; Start 07/07/16 at 09:00 Dexamethasone (Decadron) 4 mg DAILY@07 IV ; Start 07/07/16 at 07:00; Stop at 06:59 Pantoprazole (Protonix Tab) 40 mg DAILY@06 PO ; Start 07/08/16 at 06:00 Docusate Sodium/ Ferrous Fumarate (Eliceo-Sequels) 1 tab BID PO Last administered on 07/07/16 09:29; Admin Dose 1 TAB; Start 07/07/16 at 09:00 Docusate Sodium (Colace) 200 mg BID PO Last administered on 07/07/16 09:28; Admin Dose 200 MG; Start 07/07/16 at 09:00; Stop 07/10/16 at 08:59 Simethicone (Mylicon) 80 mg TID PRN PO DISTENSION/GAS/BLOATING; Start 07/06/16 at 11:30 Senna/Docusate Sodium (Senokot-S) 2 tab BID PRN PO CONSTIPATION; Start at 11:30 Magnesium Hydroxide (Milk Of Mag) 30 ml HS PRN PO CONSTIPATION; Start 07/06/16 at 11:30 Bisacodyl (Dulcolax Supp) 10 mg DAILY PRN [place] CONSTIPATION; Start 07/06/16 at 11 :30 Sodium Biphosphate/ Sodium Phosphate (Fleet Enema) 133 ml DAILY PRN [place] CONSTIPATION; Start 07/06/16 at 11:30 Diphenhydramine HCl (Benadryl) 25 mg Q4H PRN IM ITCHING OR RASH; Start at 11:30 Ketorolac Tromethamine (Toradol) 15 mg DAILY@06 PRN INJ ADMINSTER BY SURGEON ONLY; Start 07/07/16 at 06:00; Stop 07/11/16 at 05:59 Bupivacaine HCl/ Epinephrine Bitart (Marcaine 0.25%/ Epi (Sdv) 30 ml) 20 ml DAILY@06 PRN INJ ADMINSTER BY SURGEON ONLY; Start 07/07/16 at 06:00; Stop 07/11 at 05:59 Naloxone HCl (Narcan) 0.2 mg Q2M PRN IV DECREASED REPIRATORY RATE; Start at 11:30 Atorvastatin Calcium (Lipitor) 10 mg QHS PO Last administered on 07/06/16 21: 51; Admin Dose 10 MG; Start 07/06/16 at 21:00 Metoprolol Succinate (Toprol Xl) 100 mg DAILY PO Last administered on 09:29; Admin Dose 100 MG; Start 07/07/16 at 09:00 Polyethylene Glycol (Miralax) 17 gm DAILY PO Last administered on 07/07/16 09: 30; Admin Dose 17 GM; Start 07/07/16 at 09:00 Losartan Potassium (Cozaar) 50 mg DAILY PO Last administered on 07/07/16 09:29 ; Admin Dose 50 MG; Start 07/07/16 at 09:00 Hydrochlorothiazide (Hydrochlorothiazide) 12.5 mg DAILY PO Last administered on 07/07/16 09:29; Admin Dose 12.5 MG; Start 07/07/16 at 09:00 MICHAELLE TURNER MD Jul 07, 2016 10:40
[2016-07-07] MEDS ORDERED: ONDANSETRON 4 MG INJ IV PRN (11:30)
[2016-07-07 11:57] LABS: ALBUMIN 3.2 g/dl (3.3-4.9); POTASSIUM 3.1 mmol/L (3.5-5.1)
[2016-07-07 11:59] LABS: BILIRUBIN,INDIRECT 0.3 mg/dl (0-1.1); BILIRUBIN,TOTAL 0.3 mg/dl (0.2-1.3); CREATININE 0.75 mg/dl (0.44-1.00)
[2016-07-07 12:00] LABS: CALCIUM 8.7 mg/dl (8.4-10.2); TOTAL PROTEIN 6.4 g/dl (6.1-8.1)
[2016-07-07] MEDS ORDERED: POTASSIUM CHLORIDE (SR) 20 MEQ TAB PO STA (12:53)
[2016-07-07 19:41] VITALS: BP 158/72; RESP 20
--- NOTE | 2016-07-07 19:45 | OPPN ---
Date/Time of Note Date/Time of Note DATE: 07/07/16 TIME: 19:44 Post-Anesthesia Notes Post-Anesthesia Note Last documented vital signs Vital Signs Date Time Temp Pulse Resp B/P Pulse Ox O2 Delivery O2 Flow Rate FiO2 07/07/16 19:41 98.3 64 20 158/72 99 07/06/16 18:07 Nasal Cannula 2.0 Activity: WNL Respiratory function: WNL Cardiovascular function: WNL Mental status: Baseline Pain reasonably controlled: Yes Hydration appropriate: Yes Nausea/Vomiting absent: Yes DIGNA POON MD Jul 07, 2016 19:45
[2016-07-07 20:42] LABS: ADD UMIC YES; URINE BILIRUBIN (Dip) NEGATIVE (NEGATIVE); URINE BLOOD (Dip) 2+ (NEGATIVE); URINE COLOR LT. YELLOW (YELLOW); URINE GLUCOSE (Dip) NEGATIVE (NEGATIVE); URINE KETONES (Dip) NEGATIVE (NEGATIVE); URINE LEUKOCYTE ESTERASE (Dip) NEGATIVE (NEGATIVE); URINE NITRITE (Dip) NEGATIVE (NEGATIVE); URINE TOTAL PROTEIN (Dip) NEGATIVE (NEGATIVE); URINE UROBILINOGEN (Dip) 0.2 E.U./dL (0.1-1.0)
[2016-07-07] MEDS: ATORVASTATIN 10 MG TAB PO SCH (21:16)
[2016-07-08] MEDS: ACETAMINOPHEN 1000MG/100ML IV 100 ML IVPB SCH (04:09)
[2016-07-08 05:33] LABS: ADD SCAN DIFF NO
[2016-07-08 05:45] LABS: BASOPHILS % 0.4 % (0.0-2.0); EOSINOPHILS # 0.3 10^3/ul (0.0-0.5); EOSINOPHILS % 3.5 % (0.0-7.0); HEMATOCRIT 30.6 % (37.0-47.0); HEMOGLOBIN 9.9 g/dl (12.0-16.0); LYMPHOCYTES % 27.4 % (15.0-51.0); MEAN CORPUSCULAR HEMOGLOBIN 29.4 pg (29.0-33.0); MEAN CORPUSCULAR HGB CONC 32.4 g/dl (32.0-37.0); MEAN CORPUSCULAR VOLUME 90.8 fl (82.0-101.0); MEAN PLATELET VOLUME 10.4 fl (7.4-10.4); MONOCYTE # 0.5 10^3/ul (0.3-0.9); MONOCYTES % 7.4 % (0.0-11.0); NEUTROPHIL # 4.4 10^3/ul (1.6-7.5); NEUTROPHILS % 60.9 % (39.0-77.0); PLATELET COUNT 219 10^3/UL (140-415); RED BLOOD COUNT 3.37 10^6/ul (4.20-5.40); RED CELL DISTRIBUTION WIDTH 13.8 % (11.5-14.5); WHITE BLOOD COUNT 7.2 10^3/ul (4.8-10.8)
[2016-07-08] MEDS: PANTOPRAZOLE (EC) 40 MG TAB PO SCH (05:56)
[2016-07-08] MEDS: DEXAMETHASONE 4 MG/ML 1 ML INJ IV SCH (05:56)
[2016-07-08 06:25] LABS: ALBUMIN 2.8 g/dl (3.3-4.9); ALBUMIN/GLOBULIN RATIO 1.03; BILIRUBIN,INDIRECT 0.3 mg/dl (0-1.1); BILIRUBIN,TOTAL 0.3 mg/dl (0.2-1.3); CALCIUM 8.4 mg/dl (8.4-10.2); CREATININE 0.76 mg/dl (0.44-1.00); POTASSIUM 3.4 mmol/L (3.5-5.1); TOTAL PROTEIN 5.5 g/dl (6.1-8.1)
[2016-07-08 07:39] VITALS: BP 165/74; RESP 20
[2016-07-08] MEDS: ASPIRIN (EC) 325 MG TAB PO SCH ×2 (08:46→21:23)
[2016-07-08] MEDS: CELECOXIB 200 MG CAP PO SCH ×2 (08:46→21:22)
[2016-07-08] MEDS: DOCUSATE SODIUM 100 MG CAP PO SCH ×2 (08:46→21:23)
[2016-07-08] MEDS: FERROUS FUMARATE (SR) TAB PO SCH ×2 (08:46→21:23)
[2016-07-08] MEDS: METOPROLOL (XL) 100 MG TAB PO SCH (08:47)
[2016-07-08] MEDS: POLYETHYLENE GLYCOL 17 GM PACKET PO SCH (08:47)
[2016-07-08] MEDS ORDERED: LOSARTAN 50 MG TAB PO SCH (09:00)
[2016-07-08] MEDS ORDERED: POTASSIUM CHLORIDE (SR) 20 MEQ TAB PO STA (09:11)
[2016-07-08] MEDS ORDERED: LOSARTAN 50 MG TAB PO ONE (09:30)
[2016-07-08 11:38] VITALS: BP 188/77
--- NOTE | 2016-07-08 12:04 | CONS ---
Date/Time of Note Date/Time of Note DATE: 07/08/16 TIME: 11:58 Consult Date/Type/Reason Admit Date/Time Jul 06, 2016 at 06:10 Initial Consult Date 07/06/2016 Type of Consultation: medicine Reason for Consultation HTN, HLD Subjective Patient doing well this am. Has had BM. Per sitter more oriented. Denies chest pain, sob, cough, nausea, vomiting, diarrhea, constipation. Reports adequate pain control. Objective Vital Signs Date Time Temp Pulse Resp B/P Pulse Ox O2 Delivery O2 Flow Rate FiO2 07/08/16 11:38 188/77 07/08/16 07:39 98.5 60 20 96 07/06/16 18:07 Nasal Cannula 2.0 Intake and Output 07/07/16 07/07/16 07/08/16 15:00 23:00 07:00 Intake Total 140 ml 940 ml 580 ml Balance 140 ml 940 ml 580 ml Exam Gen-NAD, alert and oriented to person, place, time, situation however slowed mentation HEENT-Op clear, no scleral icterus, mmm CV-RRR, nml s1/s2, no m/r/g Abd-soft, NT, ND, +BS Ext-No c/c/e Results/Medications Result Diagram: 07/08/16 0420 07/08/16 0420 Results 24 hrs Laboratory Tests Test 07/08/16 04:20 White Blood Count 7.2 Red Blood Count 3.37 L Hemoglobin 9.9 L Hematocrit 30.6 L Mean Corpuscular Volume 90.8 Mean Corpuscular Hemoglobin 29.4 Mean Corpuscular Hemoglobin Concent 32.4 Red Cell Distribution Width 13.8 Platelet Count 219 Mean Platelet Volume 10.4 Neutrophils % 60.9 Lymphocytes % 27.4 Monocytes % 7.4 Eosinophils % 3.5 Basophils % 0.4 Nucleated Red Blood Cells % 0.0 Neutrophils # 4.4 Lymphocytes # 2.0 Monocytes # 0.5 Eosinophils # 0.3 Basophils # 0.0 Nucleated Red Blood Cells # 0.0 Sodium Level 140 Potassium Level 3.4 L Chloride Level 107 Carbon Dioxide Level 30 Anion Gap 6 #L Blood Urea Nitrogen 12 Creatinine 0.76 Glucose Level 109 Calcium Level 8.4 Magnesium Level 1.9 Total Bilirubin 0.3 Direct Bilirubin 0.00 Indirect Bilirubin 0.3 Aspartate Amino Transf (AST/SGOT) 44 Alanine Aminotransferase (ALT/SGPT) 28 Alkaline Phosphatase 63 Total Protein 5.5 L Albumin 2.8 L Globulin 2.70 Albumin/Globulin Ratio 1.03 Medications Current Medications Oxycodone HCl (Roxicodone) 20 mg Q3H PRN PO PAIN LEVEL 8-10; Start 07/06/16 at 11:30 Oxycodone HCl (Roxicodone) 10 mg Q3H PRN PO PAIN LEVEL 4-7; Start 07/06/16 at 11:30 Oxycodone HCl (Roxicodone) 5 mg Q3H PRN PO PAIN LEVEL 1-3; Start 07/06/16 at 11 :30 Zolpidem Tartrate (Ambien) 5 mg HS PRN PO INSOMNIA; Start 07/06/16 at 11:30 Ondansetron HCl (Zofran Inj) 4 mg Q4H PRN IV NAUSEA AND/OR VOMITING; Start at 11:30 Miscellaneous Information (Note) NOTE XX ; Start 07/06/16 at 11:30 Aspirin (Ecotrin) 325 mg BID PO Last administered on 07/08/16 08:46; Admin Dose 325 MG; Start 07/07/16 at 09:00 Celecoxib (Celebrex) 200 mg BID PO Last administered on 07/08/16 08:46; Admin Dose 200 MG; Start 07/07/16 at 09:00 Dexamethasone (Decadron) 4 mg DAILY@07 IV Last administered on 07/08/16 05:56 ; Admin Dose 4 MG; Start 07/07/16 at 07:00; Stop 07/10/16 at 06:59 Pantoprazole (Protonix Tab) 40 mg DAILY@06 PO Last administered on 07/08/16 05 :56; Admin Dose 40 MG; Start 07/08/16 at 06:00 Docusate Sodium/ Ferrous Fumarate (Eliceo-Sequels) 1 tab BID PO Last administered on 07/08/16 08:46; Admin Dose 1 TAB; Start 07/07/16 at 09:00 Docusate Sodium (Colace) 200 mg BID PO Last administered on 07/08/16 08:46; Admin Dose 200 MG; Start 07/07/16 at 09:00; Stop 07/10/16 at 08:59 Simethicone (Mylicon) 80 mg TID PRN PO DISTENSION/GAS/BLOATING; Start 07/06/16 at 11:30 Senna/Docusate Sodium (Senokot-S) 2 tab BID PRN PO CONSTIPATION; Start at 11:30 Magnesium Hydroxide (Milk Of Mag) 30 ml HS PRN PO CONSTIPATION; Start 07/06/16 at 11:30 Bisacodyl (Dulcolax Supp) 10 mg DAILY PRN [place] CONSTIPATION; Start 07/06/16 at 11 :30 Sodium Biphosphate/ Sodium Phosphate (Fleet Enema) 133 ml DAILY PRN [place] CONSTIPATION; Start 07/06/16 at 11:30 Diphenhydramine HCl (Benadryl) 25 mg Q4H PRN IM ITCHING OR RASH; Start at 11:30 Ketorolac Tromethamine (Toradol) 15 mg DAILY@06 PRN INJ ADMINSTER BY SURGEON ONLY; Start 07/07/16 at 06:00; Stop 07/11/16 at 05:59 Bupivacaine HCl/ Epinephrine Bitart (Marcaine 0.25%/ Epi (Sdv) 30 ml) 20 ml DAILY@06 PRN INJ ADMINSTER BY SURGEON ONLY; Start 07/07/16 at 06:00; Stop 07/11 at 05:59 Naloxone HCl (Narcan) 0.2 mg Q2M PRN IV DECREASED REPIRATORY RATE; Start at 11:30 Atorvastatin Calcium (Lipitor) 10 mg QHS PO Last administered on 07/07/16 21: 16; Admin Dose 10 MG; Start 07/06/16 at 21:00 Metoprolol Succinate (Toprol Xl) 100 mg DAILY PO Last administered on 08:47; Admin Dose 100 MG; Start 07/07/16 at 09:00 Polyethylene Glycol (Miralax) 17 gm DAILY PO Last administered on 07/08/16 08: 47; Admin Dose 17 GM; Start 07/07/16 at 09:00 Losartan Potassium (Cozaar) 100 mg DAILY PO ; Start 07/09/16 at 09:00 Assessment/Plan Chief Complaint/Hosp Course 81 y/o female pmh HTN, HLD s/p R TKA 07/06. H/c c/b disorientation/confusion and elevated blood pressures. Problems: Additional Assessment/Plan A/P: Ortho #s/p R TKA -ASA BID -PT -judicious pain management Psych #altered mental status-improved. Likely delirium in setting of pain meds. -reorientation prn -minimize pain medications CV #HTN-elevated -will increase losartan to 100mg po qday from 50mg. This may also help potassium levels #HLD -atorva Dispo: not yet stable for medical discharge. Mental status needs to continue to improve. BP needs to be improved as well. Will likely need placement at SNF for rehab, lives alone. YOANA ZHENG MD Jul 08, 2016 12:04
[2016-07-08 13:15] VITALS: BP 156/75
--- NOTE | 2016-07-08 16:30 | PN ---
DATE: Postoperative day #3. Patient was extremely confused yesterday. Today, she was completely lucid. She knows exactly where she is and is able to give a full account of herself. Dressings were change d. The wound is clean and healing well. We have 2 small spots where there was leakage of blood, wh ich were sealed with Dermabond. Plans are to discharge home tomorrow or the next day. Hemoglobin 9 .9, white cell count of 7.2, temperature 98.5. Dictated By: NICK ROMAN/MEETA Conf#: [id number] DID#: [id number]
[2016-07-08 19:53] VITALS: BP 147/68; RESP 18
[2016-07-08] MEDS: ATORVASTATIN 10 MG TAB PO SCH (21:23)
[2016-07-09] MEDS: PANTOPRAZOLE (EC) 40 MG TAB PO SCH (05:09)
[2016-07-09 05:57] LABS: ADD SCAN DIFF NO
[2016-07-09 06:14] LABS: CALCIUM 8.5 mg/dl (8.4-10.2); CREATININE 0.8 mg/dl (0.44-1.00); POTASSIUM 3.5 mmol/L (3.5-5.1)
[2016-07-09] MEDS: DEXAMETHASONE 4 MG/ML 1 ML INJ IV SCH (06:24)
[2016-07-09 08:00] VITALS: BP 163/75; PULSE 65
[2016-07-09 08:23] VITALS: BP 163/75; RESP 18
[2016-07-09] MEDS ORDERED: POTASSIUM CHLORIDE (SR) 20 MEQ TAB PO STA (08:47)
[2016-07-09] MEDS: ASPIRIN (EC) 325 MG TAB PO SCH ×2 (09:03→20:34)
[2016-07-09] MEDS: DOCUSATE SODIUM 100 MG CAP PO SCH ×2 (09:03→20:34)
[2016-07-09] MEDS: FERROUS FUMARATE (SR) TAB PO SCH ×2 (09:03→20:34)
[2016-07-09] MEDS: CELECOXIB 200 MG CAP PO SCH ×2 (09:03→20:34)
[2016-07-09] MEDS: LOSARTAN 50 MG TAB PO SCH (09:04)
[2016-07-09] MEDS: METOPROLOL (XL) 100 MG TAB PO SCH (09:04)
[2016-07-09] MEDS: POLYETHYLENE GLYCOL 17 GM PACKET PO SCH (09:05)
[2016-07-09 09:27] LABS: BASOPHILS % 0.3 % (0.0-2.0); EOSINOPHILS # 0.3 10^3/ul (0.0-0.5); EOSINOPHILS % 2.8 % (0.0-7.0); HEMATOCRIT 33.7 % (37.0-47.0); HEMOGLOBIN 10.3 g/dl (12.0-16.0); LYMPHOCYTES # 2.6 10^3/ul (0.8-2.9); LYMPHOCYTES % 28.6 % (15.0-51.0); MEAN CORPUSCULAR HEMOGLOBIN 28.6 pg (29.0-33.0); MEAN CORPUSCULAR HGB CONC 30.6 g/dl (32.0-37.0); MEAN CORPUSCULAR VOLUME 93.6 fl (82.0-101.0); MEAN PLATELET VOLUME 10.7 fl (7.4-10.4); MONOCYTE # 0.6 10^3/ul (0.3-0.9); NEUTROPHIL # 5.4 10^3/ul (1.6-7.5); NUCLEATED RED BLOOD CELLS% 0.2 /100WBC (0.0-0.0); PLATELET COUNT 220 10^3/UL (140-415); RED CELL DISTRIBUTION WIDTH 14.2 % (11.5-14.5); WHITE BLOOD COUNT 8.9 10^3/ul (4.8-10.8)
[2016-07-09 11:21] VITALS: BP 146/67; PULSE 69
--- NOTE | 2016-07-09 12:15 | CONS ---
Date/Time of Note Date/Time of Note DATE: 07/09/16 TIME: 11:54 Consult Date/Type/Reason Admit Date/Time Jul 06, 2016 at 06:10 Initial Consult Date 07/06/2016 Type of Consultation: medicine Reason for Consultation HTN, HLD, AMS Subjective Patient doing ok this morning. Reports that pain is adequately controlled. Denies fevers, chills, nausea, vomiting, diarrhea, constipation. Had BM yesterday. Objective Vital Signs Date Time Temp Pulse Resp B/P Pulse Ox O2 Delivery O2 Flow Rate FiO2 07/09/16 11:21 69 146/67 07/09/16 08:23 98.0 18 95 07/06/16 18:07 Nasal Cannula 2.0 Intake and Output 07/08/16 07/08/16 07/09/16 15:00 23:00 07:00 Intake Total 1860 ml 950 ml Output Total 900 ml Balance 1860 ml 50 ml Exam Gen-NAD, alert and oriented, slowed mentation. Unclear baseline HEENT-Op clear, no scleral icterus, mmm CV-RRR, nml s1/s2, no m/r/g Abd-soft, NT, ND, +BS Ext-No c/c/e Results/Medications Result Diagram: 07/09/165 07/09/165 Results 24 hrs Laboratory Tests Test 07/09/16 04:45 White Blood Count 8.9 # Red Blood Count 3.60 L Hemoglobin 10.3 L Hematocrit 33.7 L Mean Corpuscular Volume 93.6 Mean Corpuscular Hemoglobin 28.6 L Mean Corpuscular Hemoglobin Concent 30.6 L Red Cell Distribution Width 14.2 Platelet Count 220 Mean Platelet Volume 10.7 H Neutrophils % 61.0 Lymphocytes % 28.6 Monocytes % 7.0 Eosinophils % 2.8 Basophils % 0.3 Nucleated Red Blood Cells % 0.2 H Neutrophils # 5.4 Lymphocytes # 2.6 Monocytes # 0.6 Eosinophils # 0.3 Basophils # 0.0 Nucleated Red Blood Cells # 0.0 Sodium Level 139 Potassium Level 3.5 Chloride Level 105 Carbon Dioxide Level 30 Anion Gap 8 Blood Urea Nitrogen 16 Creatinine 0.80 Glucose Level 121 Calcium Level 8.5 Medications Current Medications Oxycodone HCl (Roxicodone) 20 mg Q3H PRN PO PAIN LEVEL 8-10; Start 07/06/16 at 11:30 Oxycodone HCl (Roxicodone) 10 mg Q3H PRN PO PAIN LEVEL 4-7; Start 07/06/16 at 11:30 Oxycodone HCl (Roxicodone) 5 mg Q3H PRN PO PAIN LEVEL 1-3; Start 07/06/16 at 11 :30 Zolpidem Tartrate (Ambien) 5 mg HS PRN PO INSOMNIA Last administered on 00:58; Admin Dose 5 MG; Start 07/06/16 at 11:30 Ondansetron HCl (Zofran Inj) 4 mg Q4H PRN IV NAUSEA AND/OR VOMITING; Start at 11:30 Miscellaneous Information (Note) NOTE XX ; Start 07/06/16 at 11:30 Aspirin (Ecotrin) 325 mg BID PO Last administered on 07/09/16 09:03; Admin Dose 325 MG; Start 07/07/16 at 09:00 Celecoxib (Celebrex) 200 mg BID PO Last administered on 07/09/16 09:03; Admin Dose 200 MG; Start 07/07/16 at 09:00 Dexamethasone (Decadron) 4 mg DAILY@07 IV Last administered on 07/08/16 05:56 ; Admin Dose 4 MG; Start 07/07/16 at 07:00; Stop 07/10/16 at 06:59 Pantoprazole (Protonix Tab) 40 mg DAILY@06 PO Last administered on 07/09/16 05 :09; Admin Dose 40 MG; Start 07/08/16 at 06:00 Docusate Sodium/ Ferrous Fumarate (Eliceo-Sequels) 1 tab BID PO Last administered on 07/09/16 09:03; Admin Dose 1 TAB; Start 07/07/16 at 09:00 Docusate Sodium (Colace) 200 mg BID PO Last administered on 07/09/16 09:03; Admin Dose 200 MG; Start 07/07/16 at 09:00; Stop 07/10/16 at 08:59 Simethicone (Mylicon) 80 mg TID PRN PO DISTENSION/GAS/BLOATING; Start 07/06/16 at 11:30 Senna/Docusate Sodium (Senokot-S) 2 tab BID PRN PO CONSTIPATION; Start at 11:30 Magnesium Hydroxide (Milk Of Mag) 30 ml HS PRN PO CONSTIPATION; Start 07/06/16 at 11:30 Bisacodyl (Dulcolax Supp) 10 mg DAILY PRN [place] CONSTIPATION; Start 07/06/16 at 11 :30 Sodium Biphosphate/ Sodium Phosphate (Fleet Enema) 133 ml DAILY PRN [place] CONSTIPATION; Start 07/06/16 at 11:30 Diphenhydramine HCl (Benadryl) 25 mg Q4H PRN IM ITCHING OR RASH; Start at 11:30 Ketorolac Tromethamine (Toradol) 15 mg DAILY@06 PRN INJ ADMINSTER BY SURGEON ONLY; Start 07/07/16 at 06:00; Stop 07/11/16 at 05:59 Bupivacaine HCl/ Epinephrine Bitart (Marcaine 0.25%/ Epi (Sdv) 30 ml) 20 ml DAILY@06 PRN INJ ADMINSTER BY SURGEON ONLY; Start 07/07/16 at 06:00; Stop 07/11 at 05:59 Naloxone HCl (Narcan) 0.2 mg Q2M PRN IV DECREASED REPIRATORY RATE; Start at 11:30 Atorvastatin Calcium (Lipitor) 10 mg QHS PO Last administered on 07/08/16 21: 23; Admin Dose 10 MG; Start 07/06/16 at 21:00 Metoprolol Succinate (Toprol Xl) 100 mg DAILY PO Last administered on 09:04; Admin Dose 100 MG; Start 07/07/16 at 09:00 Polyethylene Glycol (Miralax) 17 gm DAILY PO Last administered on 07/09/16 09: 05; Admin Dose 17 GM; Start 07/07/16 at 09:00 Losartan Potassium (Cozaar) 100 mg DAILY PO Last administered on 07/09/16 09: 04; Admin Dose 100 MG; Start 07/09/16 at 09:00 Assessment/Plan Chief Complaint/Hosp Course 81 y/o female pmh HTN, HLD s/p R TKA 07/06. H/c c/b disorientation/confusion and elevated blood pressures. Problems: Additional Assessment/Plan A/P: Ortho #s/p R TKA -ASA BID -PT -judicious pain management Psych #altered mental status-improved but unclear baseline. Possibly delirium in setting of pain meds. -reorientation prn -minimize pain medications CV #HTN-improved -continue losartan 100 -if doesnt continue to improve may need to add on amlodipine low dose #HLD -atorva Dispo: not yet stable for medical discharge, need to continue to monitor one more day.. Patient amenable to discharge to SNF for rehab tomorrow pending clinical improvement. 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 YOANA ZHENG MD Jul 09, 2016 12:04
--- NOTE | 2016-07-09 16:52 | HKNOTE ---
DATE OF SERVICE: 07/09/2016 The patient is now 4 days postop following right total knee replacement. She was delayed by having quite a serious confusion on the first postoperative day. She has now made a complete recovery and is completely alert and oriented for time and place. The dressings were changed yesterday and there was some leakage of blood from the lower end of the wound as well as from the Hemovac sites. Today the Hemovac sites are completely dry but there are is still some drainage from the lower end of the wound. The wound looks excellent. No sign of infection and healing well. Hemoglobin was 10.3, white cell count 8.9. Temperature 98.0. Patient will be transferred to a [facility] tomorrow. Dictated By: NICK ROMAN/MEETA Conf#: [id number] DID#: [id number]
[2016-07-09 19:45] VITALS: BP 133/61; RESP 18
[2016-07-09 20:20] VITALS: BP 141/65; RESP 20
[2016-07-09] MEDS: ATORVASTATIN 10 MG TAB PO SCH (20:34)
[2016-07-10 05:26] LABS: ADD SCAN DIFF NO
[2016-07-10 05:33] LABS: WHITE BLOOD COUNT 8.5 10^3/ul (4.8-10.8)
[2016-07-10 05:34] LABS: BASOPHILS % 0.4 % (0.0-2.0); EOSINOPHILS # 0.3 10^3/ul (0.0-0.5); HEMATOCRIT 30.6 % (37.0-47.0); LYMPHOCYTES # 1.7 10^3/ul (0.8-2.9); LYMPHOCYTES % 19.6 % (15.0-51.0); MEAN CORPUSCULAR HEMOGLOBIN 29.9 pg (29.0-33.0); MEAN CORPUSCULAR HGB CONC 32.7 g/dl (32.0-37.0); MEAN CORPUSCULAR VOLUME 91.6 fl (82.0-101.0); MEAN PLATELET VOLUME 10.6 fl (7.4-10.4); MONOCYTE # 0.9 10^3/ul (0.3-0.9); MONOCYTES % 10.9 % (0.0-11.0); NEUTROPHIL # 5.6 10^3/ul (1.6-7.5); NEUTROPHILS % 65.6 % (39.0-77.0); PLATELET COUNT 227 10^3/UL (140-415); RED BLOOD COUNT 3.34 10^6/ul (4.20-5.40); RED CELL DISTRIBUTION WIDTH 14.4 % (11.5-14.5)
[2016-07-10] MEDS: PANTOPRAZOLE (EC) 40 MG TAB PO SCH (05:53)
--- NOTE | 2016-07-10 07:49 | PN ---
Date/Time of Note Date/Time of Note DATE: 07/10/16 TIME: 07:45 Assessment/Plan VTE Prophylaxis VTE Prophylaxis Intervention: ambulation, SCD's, other (Aspirin 325 mg.) Lines/Catheters IV Catheter Type (from Nrsg): Saline Lock Jesus in Place (from Nrsg): No Assessment/Plan Assessment/Plan -Pain Meds as needed -Drainage of blisters to the right knee performed today. Skin left intact. Wound care instructions discussed with patient in detail. Nurse was also notified. -Dress change performed today -ASA for DVT Prophylaxis x 6 weeks outpatient discussed. -Continue monitoring as outpatient on discharge -Follow-up at scheduled postop outpatient appointment or sooner if there is any issue. -Tegaderm dressings given with specific instructions to use as outpatient to keep wound dry until domitila are moved around 10 days. -Patient Stable -Discharge to SNF/convalescent home Amendment: Returned for repeat dress change after being notified by nurse Ghosh that she is having ongoing drainage that appears to be blood at the inferior portion of surgical wound. After looking at wound there is no bleeding. Wound is clean dry and intact. Drainage with a red tint is coming from blister. Blister was drained again. Gauze placed directly over blister and surgical wound with Mepilex placed over it. Darius wrap was then placed over the knee. Patient is okay to discharge to retirement facility in [facility]. Subjective 24 Hr Interval Summary 81-year-old female postop day 4 status post right total knee arthroplasty. Denies any pain complaints. Patient is oriented today to person, place and time. Confirms being ambulatory with physical therapy yesterday. When asked patient states that she is ready to be discharged. Plan is to discharge to a convalescent home in [facility]. Constitutional: no complaints Pain Control: well controlled Exam/Review of Systems Vital Signs Vitals Vital Signs Date Time Temp Pulse Resp B/P Pulse Ox O2 Delivery O2 Flow Rate FiO2 07/10/16 09:00 98.5 70 20 137/66 96 07/06/16 18:07 Nasal Cannula 2.0 Intake and Output 07/09/16 07/09/16 07/10/16 15:00 23:00 07:00 Intake Total 560 ml 420 ml Balance 560 ml 420 ml Exam Free Text/Dictation -Hemovac: Removed. -Pain Cocktail Drains: Removed. Drain sites healing well. No drainage. -Incision: Clean, Dry and Intact without any redness or drainage. Small blister about 1.5 cm to the middle medial side of surgical wound and another blister about 2 cm to the distal medial side of wound. No signs of infection. -5/5 Tibialis Anterior, EHL Gastrocnemius/Soleus and Peroneals -Normal Sensation -Palpable DP/PT, Capillary Refill <2 secs -No Distal Edema -Negative Gurpreet Sign/No calf pain -Toes Freely Movable Constitutional: alert, oriented, well developed Results Result Diagram: 07/10/16 0437 07/09/16 0445 CHLOE DICKSON PA-C Jul 10, 2016 07:49
--- NOTE | 2016-07-10 08:06 | DS ---
Date/Time of Note Date/Time of Note DATE: 07/10/16 TIME: 08:00 Discharge Summary Admission/Discharge Info Admit Date/Time Jul 06, 2016 at 06:10 Discharge Date/Time 07/10/16 Final Diagnosis Status post right total knee replacement. Patient Condition: Stable Hospital Course On the day of admission, the patient underwent right total knee replacement Intraoperative complications: None Postoperative complications: None The patient was given prophylactic antibiotics and anticoagulants. On the day of surgery and first postoperative day patient was started on gait training and was taught usual restrictions following knee replacement Suction drain removed on the first postoperative day and the dressings were changed. The wound was found to be clean and healing well. There was no sign of infection. Pain cocktail given. Patient was a bit combative on postop day 1. She was also experiencing some disorientation. Close monitoring with one-to -one sitter on this day. Gradually improved throughout the day. On the second postoperative day, patient continued with inpatient PT. Dressings were changed. Wound was found to be clean and healing well. No signs of infection. Pain cocktail given. She was no longer combative but had slight disorientation. On the third postoperative day there was no disorientation. Wound was healing well. Cocktail drains removed. On the day of discharge, the wound was clean and healing well; there was no sign of infection. Patient did develop however small blistering x2 to the medial and lateral side. Blisters were drained without removing any skin. The dressings were changed. No disorientation. Discharge Temperature: 98.5 Discharge White Blood Cell Count: 8.5 Discharge Hemoglobin: 10 The patient was discharged to group home facility in [facility] (2016 at 1:45 PM). Arrangements were made for visiting nurses and home health/ physical therapy. Tegaderm with pad also provided for patient. Instructions given on how to use to keep wound dry while showering. Patient may discontinue use of Tegaderm with pad after domitila have been removed around 10 days postoperatively. The patient will be seen in office at scheduled postoperative evaluation date given on their preoperative exam. Should patient complain of any problems prior to scheduled postoperative evaluation date, they may call into outpatient clinic to determine if they need to be scheduled at sooner appointment to be seen immediately if needed. Discharge medications: As per medication reconciliation form Diet: Same as preadmission diet. This is Chloe Laureano PA-C dictating discharge summary for Dr. Ed Garcia. Home Meds Reported Medications Polyethylene Glycol* (Miralax*) 17 Gm Powd.pack, 17 GM PO DAILY, #60 PACKET 07/06/16 Metoprolol Succinate* (Toprol XL*) 100 Mg Tab.sr.24h, 100 MG PO DAILY, #30 TAB 07/06/16 Losartan-Hydrochlorothiazide (Losartan-HCTZ) 50-12.5 Mg Tab, 1 TAB PO DAILY, TAB 07/06/16 Sennosides (Senokotxtra) 17.2 Mg Tablet, 8.6 MG PO, TAB 07/06/16 Tramadol HCl (Tramadol HCl) 50 Mg Tablet, 50 MG PO BID, #60 TAB 07/06/16 Atorvastatin Calcium (Atorvastatin Calcium) 10 Mg Tablet, 10 MG PO QHS, #30 TAB 07/06/16 Discontinued Reported Medications Aspirin* (Aspirin* EC) 81 Mg Tablet.dr, 81 MG PO DAILY, TAB 07/06/16 Follow-up Plan 07/27/2016 at 1:45 PM Pending Labs Laboratory Tests Test 07/10/16 04:37 White Blood Count 8.510^3/ul (4.8-10.8) Red Blood Count 3.3410^6/ul (4.20-5.40) Hemoglobin 10.0g/dl (12.0-16.0) Hematocrit 30.6% (37.0-47.0) Mean Corpuscular Volume 91.6fl (82.0-101.0) Mean Corpuscular Hemoglobin 29.9pg (29.0-33.0) Mean Corpuscular Hemoglobin Concent 32.7g/dl (32.0-37.0) Red Cell Distribution Width 14.4% (11.5-14.5) Platelet Count 95101^3/UL (140-415) Mean Platelet Volume 10.6fl (7.4-10.4) Neutrophils % 65.6% (39.0-77.0) Lymphocytes % 19.6% (15.0-51.0) Monocytes % 10.9% (0.0-11.0) Eosinophils % 3.0% (0.0-7.0) Basophils % 0.4% (0.0-2.0) Nucleated Red Blood Cells % 0.0/100WBC (0.0-0.0) Neutrophils # 5.610^3/ul (1.6-7.5) Lymphocytes # 1.710^3/ul (0.8-2.9) Monocytes # 0.910^3/ul (0.3-0.9) Eosinophils # 0.310^3/ul (0.0-0.5) Basophils # 0.010^3/ul (0.0-0.1) Nucleated Red Blood Cells # 0.010^3/ul (0.0-0.0) CHLOE DICKSON PA-C Jul 10, 2016 08:06
[2016-07-10] MEDS: ASPIRIN (EC) 325 MG TAB PO SCH (08:27)
[2016-07-10] MEDS: FERROUS FUMARATE (SR) TAB PO SCH (08:27)
[2016-07-10] MEDS: CELECOXIB 200 MG CAP PO SCH (08:27)
[2016-07-10] MEDS: POLYETHYLENE GLYCOL 17 GM PACKET PO SCH (08:28)
[2016-07-10] MEDS: LOSARTAN 50 MG TAB PO SCH (08:28)
[2016-07-10] MEDS: METOPROLOL (XL) 100 MG TAB PO SCH (08:28)
[2016-07-10 09:00] VITALS: BP 137/66; RESP 20
--- NOTE | 2016-07-10 13:59 | CONS ---
Date/Time of Note Date/Time of Note DATE: 07/10/16 TIME: 13:43 Assessment/Plan Assessment/Plan Chief Complaint/Hosp Course 1.She is 4 days postop a right total knee replacement. 2. She was confused and disoriented , this has resolved 3. HTN , controlled 4. D/C planning for [facility] if accepted . I will follow there . Problems: Consultation Date/Type/Reason Admit Date/Time Jul 06, 2016 at 06:10 Initial Consult Date cancel report Type of Consultation: medicine 24 HR Interval Summary Free Text/Dictation 1.This patient is 4 days post op a R TKR . She is doing better 2. confusion , resolved . 3. HTN controlled . 4. D/C planning for possible [facility] transfer . I will follow her there . Constitutional: improved, no complaints Exam/Review of Systems Vital Signs Vitals Vital Signs Date Time Temp Pulse Resp B/P Pulse Ox O2 Delivery O2 Flow Rate FiO2 07/10/16 09:00 98.5 70 20 137/66 96 07/06/16 18:07 Nasal Cannula 2.0 Intake and Output 07/09/16 07/09/16 07/10/16 15:00 23:00 07:00 Intake Total 560 ml 420 ml Balance 560 ml 420 ml Exam Constitutional: alert, oriented Respiratory: clear to auscultation Cardiovascular: regular rate and rhythm Musculoskeletal: nl extremities to inspection Results Result Diagram: 07/10/16 0437 07/09/16 0445 Results 24 hrs Laboratory Tests Test 07/10/16 04:37 White Blood Count 8.5 Red Blood Count 3.34 L Hemoglobin 10.0 L Hematocrit 30.6 L Mean Corpuscular Volume 91.6 Mean Corpuscular Hemoglobin 29.9 Mean Corpuscular Hemoglobin Concent 32.7 Red Cell Distribution Width 14.4 Platelet Count 227 Mean Platelet Volume 10.6 H Neutrophils % 65.6 Lymphocytes % 19.6 Monocytes % 10.9 Eosinophils % 3.0 Basophils % 0.4 Nucleated Red Blood Cells % 0.0 Neutrophils # 5.6 Lymphocytes # 1.7 Monocytes # 0.9 Eosinophils # 0.3 Basophils # 0.0 Nucleated Red Blood Cells # 0.0 Medications Medications Current Medications Oxycodone HCl (Roxicodone) 20 mg Q3H PRN PO PAIN LEVEL 8-10; Start 07/06/16 at 11:30 Oxycodone HCl (Roxicodone) 10 mg Q3H PRN PO PAIN LEVEL 4-7; Start 07/06/16 at 11:30 Oxycodone HCl (Roxicodone) 5 mg Q3H PRN PO PAIN LEVEL 1-3 Last administered on 07/10/16 09:48; Admin Dose 5 MG; Start 07/06/16 at 11:30 Zolpidem Tartrate (Ambien) 5 mg HS PRN PO INSOMNIA Last administered on 00:58; Admin Dose 5 MG; Start 07/06/16 at 11:30 Ondansetron HCl (Zofran Inj) 4 mg Q4H PRN IV NAUSEA AND/OR VOMITING; Start at 11:30 Miscellaneous Information (Note) NOTE XX ; Start 07/06/16 at 11:30 Aspirin (Ecotrin) 325 mg BID PO Last administered on 07/10/16 08:27; Admin Dose 325 MG; Start 07/07/16 at 09:00 Celecoxib (Celebrex) 200 mg BID PO Last administered on 07/10/16 08:27; Admin Dose 200 MG; Start 07/07/16 at 09:00 Pantoprazole (Protonix Tab) 40 mg DAILY@06 PO Last administered on 07/10/16 05 :53; Admin Dose 40 MG; Start 07/08/16 at 06:00 Docusate Sodium/ Ferrous Fumarate (Eliceo-Sequels) 1 tab BID PO Last administered on 07/10/16 08:27; Admin Dose 1 TAB; Start 07/07/16 at 09:00 Simethicone (Mylicon) 80 mg TID PRN PO DISTENSION/GAS/BLOATING; Start 07/06/16 at 11:30 Senna/Docusate Sodium (Senokot-S) 2 tab BID PRN PO CONSTIPATION; Start at 11:30 Magnesium Hydroxide (Milk Of Mag) 30 ml HS PRN PO CONSTIPATION; Start 07/06/16 at 11:30 Bisacodyl (Dulcolax Supp) 10 mg DAILY PRN [place] CONSTIPATION; Start 07/06/16 at 11 :30 Sodium Biphosphate/ Sodium Phosphate (Fleet Enema) 133 ml DAILY PRN [place] CONSTIPATION; Start 07/06/16 at 11:30 Diphenhydramine HCl (Benadryl) 25 mg Q4H PRN IM ITCHING OR RASH; Start at 11:30 Ketorolac Tromethamine (Toradol) 15 mg DAILY@06 PRN INJ ADMINSTER BY SURGEON ONLY; Start 07/07/16 at 06:00; Stop 07/11/16 at 05:59 Bupivacaine HCl/ Epinephrine Bitart (Marcaine 0.25%/ Epi (Sdv) 30 ml) 20 ml DAILY@06 PRN INJ ADMINSTER BY SURGEON ONLY; Start 07/07/16 at 06:00; Stop 07/11 at 05:59 Naloxone HCl (Narcan) 0.2 mg Q2M PRN IV DECREASED REPIRATORY RATE; Start at 11:30 Atorvastatin Calcium (Lipitor) 10 mg QHS PO Last administered on 07/09/16 20: 34; Admin Dose 10 MG; Start 07/06/16 at 21:00 Metoprolol Succinate (Toprol Xl) 100 mg DAILY PO Last administered on 08:28; Admin Dose 100 MG; Start 07/07/16 at 09:00 Polyethylene Glycol (Miralax) 17 gm DAILY PO Last administered on 07/10/16 08: 28; Admin Dose 17 GM; Start 07/07/16 at 09:00 Losartan Potassium (Cozaar) 100 mg DAILY PO Last administered on 07/10/16 08: 28; Admin Dose 100 MG; Start 07/09/16 at 09:00 MICHAELLE TURNER MD Jul 10, 2016 13:54
== END 2016-07-10 17:40 | DRG 470 ==
LOC: REC 06:10 → MS1 13:55
PROC: 0SRC0J9 Replacement of Right Knee Joint with Synthetic Substitute, Cemented, Open Approach (ICD-10-PCS; principal; 2016-07-06 07:00)
DX: M17.11 Unilateral primary osteoarthritis, right knee (principal); I10 Essential (primary) hypertension; E78.5 Hyperlipidemia, unspecified; E66.09 Other obesity due to excess calories; Z68.30 Body mass index [BMI] 30.0-30.9, adult; K59.00 Constipation, unspecified; R23.8 Other skin changes; R41.0 Disorientation, unspecified; Z87.891 Personal history of nicotine dependence
CPT/HCPCS: 73560; 80048; 80053; 81001; 81003; 83735; 85025; 86850; 86900; 86901; 86920; 87086; 88304; 88311; 97110; 97116; 97162; 97530; C1776; J0131; J0690; J0735; J1100; J1885; J2250; J2274; J2370; J2405; J2765; J2795; J3370; J7120; J7121

== ENCOUNTER → 2016-07-27 | Outpatient (CLI) | payer MEDICARE, BC ==
[~2016-07-27] MED LIST changes: +ATOR10TA65 PO; -KNEE PAIN COCKTAIL VANCO INJ SCH; +LOSA1TAB19 PO; +METO100T13 PO; +POLY17PO6 PO; +SENN17.23 PO; -SOD CHLORIDE 0.9% IVPB ONE; +TRAM50TA2 PO; -TRANEXAMIC ACID IVPB ONE
--- NOTE | 2016-07-27 14:19 | PN ---
Date/Time of Note Date/Time of Note DATE: 07/27/16 TIME: 14:14 Outpatient Progress Note Chief Complaint 3 week follow-up status post right total knee arthroplasty. HPI 81-year-old female presents today for three-week postoperative appointment after right total knee arthroplasty performed on 07/06/2016. In regards to pain , she states that her pain is mild to moderate in the morning and her knee is stiff. As the day goes on pain dissipates. Patient states that pain is significantly improved when she compares knee pain prior to surgery versus knee pain status post surgery. Denies any falls. Patient uses ambulatory device. She is currently in snf facility in [place], [place]. Has difficulty with weightbearing independently. Denies any chest pain/tightness or calf pain. Blister that was experienced status post surgery continues to heal. Denies any fever, chills or malaise. Denies any signs of infection. She presents in wheelchair today due to difficulty walking. Presents with caregiver/family member. Review of Systems Const: No Fever, no chills, no Fatigue, normal appetite, no diaphoresis. Resp: No SOB, no wheezing, no chest pain. CV: No chest pain, no palpitaions, no VERA. Physical Exam Blood pressure is 120/66, temperature is 98.7, pulse of 66, respiratory rate is 13, height is 5 foot 4 inches, weight is 147 pounds. General Appearance: well-developed, well-nourished, in no acute distress. Right knee: On inspection of the right knee they look like there was mild dehiscence at the midline region of the knee after discharge from the hospital but on inspection today it looks like there is already skin closure with scar formation. No discharge presentation. No signs of infection. No tenderness to palpation to the knee. There is also blister just distal to the knee along the medial side. No complications with blistering. No tenderness to palpation. Normal sensory examination to light touch throughout the right lower extremity. Negative Homans sign. Patient is able to actively extend fully with active flexion up to 110-115. No pain with range of motion on exam today. Patient is able to rise from wheelchair independently. When patient is asked to ambulate she has difficulty with ambulation. While sitting, with resistance on flexion and extension there is 5/5 strength. There is slight concern as she has 5/5 strength on resistance with flexion and extension of the right knee but has difficulty with ambulation. Allergies Coded Allergies: No Known Allergy (Unverified , 07/06/16) Assessment/Plan -Wound healing well after staple removal. No signs of infection. Wound care instructions discussed today. Luisiclens was also provided for cleaning wound while she showers. -Continue ASA 325 mg twice daily for DVT prophylaxis until 6 weeks status post surgery. -No signs of DVT. -Concern regarding patient progress in regards to ambulation. Strongly advised to focus on gait training while at nursing facility with her physical therapist. Outpatient physical therapy prescription also provided when patient is discharged. Likely patient can be discharged within the week. Education for at home physical therapy and exercises provided today. Gait training with use of front wheeled walker strongly advised and instructions reinforced with patient and patient's caregiver. -Follow-up at 6 week postop appointment. X-rays will be performed at 6 weeks postoperative appointment. -Patient made aware that they may follow-up sooner, should they experience any issues or complications as we will be glad to see them. -Order for outpatient physical therapy given today with focus on improved range of motion. -Antibiotic card provided today. Antibiotic card provided for patient. Patient made aware that dental prophylaxis will be necessary prior to any dental procedure for the remainder of their lifetime. Patient is aware that they must contact their dentist prior to any procedure to inform them of previous joint replacement with prosthesis implant so appropriate antibiotic may be prescribed to lower risk of joint infection status post surgery. Card will also serve as confirmation should patient be traveling and have to go through security such as at an airport. Medications Home Meds Reported Medications Polyethylene Glycol* (Miralax*) 17 Gm Powd.pack, 17 GM PO DAILY, #60 PACKET 07/06/16 Metoprolol Succinate* (Toprol XL*) 100 Mg Tab.sr.24h, 100 MG PO DAILY, #30 TAB 07/06/16 Losartan-Hydrochlorothiazide (Losartan-HCTZ) 50-12.5 Mg Tab, 1 TAB PO DAILY, TAB 07/06/16 Sennosides (Senokotxtra) 17.2 Mg Tablet, 8.6 MG PO, TAB 07/06/16 Tramadol HCl (Tramadol HCl) 50 Mg Tablet, 50 MG PO BID, #60 TAB 07/06/16 Atorvastatin Calcium (Atorvastatin Calcium) 10 Mg Tablet, 10 MG PO QHS, #30 TAB 07/06/16 CHLOE DICKSON PA-C July 27, 2016 14:19
== END | disposition home or self-care (01) ==
LOC: HKI 13:42
DX: Z47.1 Aftercare following joint replacement surgery (principal); Z96.651 Presence of right artificial knee joint
CPT/HCPCS: G0463